=== PATIENT | female | born 1990 | race Two or more races ===

== ENCOUNTER 2020-12-18 08:51 | Inpatient (IN) | payer OTHER ==
[2020-12-18] MEDS ORDERED: BISACODYL 10 MG SUPP.RECT RC PRN (09:22)
[2020-12-18] MEDS ORDERED: BENZOCAINE 28 GM HEMORRHOIDAL OINTMENT TP PRN (09:22)
[2020-12-18] MEDS ORDERED: WITCH HAZEL 50% (TUCKS) 40 PAD/JAR PAD TP PRN (09:22)
[2020-12-18] MEDS ORDERED: BENZOCAINE 20% 57 GM BOTTLE TP PRN (09:22)
[2020-12-18] MEDS ORDERED: METHYLERGONOVINE MALEATE 0.2 MG/1 ML AMP IM PRN (09:22)
[2020-12-18] MEDS ORDERED: OXYTOCIN 20 UNITS in 0.9% NS 20 UNIT/1,000 ML INFUS.BAG IV SCH (09:30)
[2020-12-18] MEDS: IBUPROFEN 600 MG TABLET (FP) PO PRN ×2 (09:45→17:15)
[2020-12-18 10:10] LABS: BASO % 0.3 % (0-2.0); EOS % 0.3 % (0-4.5); HEMATOCRIT 32.4 % (32.4-45.2); HEMOGLOBIN 11.1 GM/dL (10.7-15.3); LYMPH % 12.6 % (8-40); MCH 29.1 pg (25.7-33.7); MCHC 34.5 g/dl (32.0-36.0); MEAN CELL VOLUME 84.4 fl (80-96); MEAN PLT VOLUME 9.8 fl (7.5-11.1); MONO % 5.3 % (3.8-10.2); NEUT % 81.5 % (42.8-82.8); PLATELET COUNT 168 K/MM3 (134-434); RBC 3.84 M/mm3 (3.60-5.2); RDW 14.6 % (11.6-15.6); WHITE BLOOD COUNT 13.2 K/mm3 (4.0-10.0)
[2020-12-18 10:15] LABS: INR 0.97 (0.83-1.09); PROTHROMBIN TIME (PATIENT) 11.9 SEC (9.7-13.0)
[2020-12-18 10:18] LABS: ACTIVATED PTT 24.7 SECONDS (25.2-36.5)
[2020-12-18 10:31] LABS: METHADONE, UR NEGATIVE ng/ml (CUTOFF=300); OPIATES, URI NEGATIVE ng/ml (CUTOFF=300); PHENCYCLIDINE,URINE NEGATIVE ng/ml (CUTOFF=25)
[2020-12-18 10:32] VITALS: BMI 29.2
[2020-12-18 10:32] LABS: URINE AMPHETAMINES NEGATIVE ng/ml (CUTOFF=500)
[2020-12-18 10:34] LABS: URINE BARBITURATES NEGATIVE ng/ml (CUTOFF=200)
[2020-12-18 10:35] LABS: URINE BENZODIAZEPINES NEGATIVE ng/ml (CUTOFF=200)
[2020-12-18 10:37] LABS: CALCIUM 8.8 mg/dL (8.5-10.1)
[2020-12-18 10:38] LABS: BLOOD UREA NITROGEN 8.1 mg/dL (7-18)
[2020-12-18 10:38] LABS: COCAINE, UR NEGATIVE ng/ml (CUTOFF=300)
[2020-12-18 10:41] LABS: CREATININE 0.5 mg/dL (0.55-1.3)
[2020-12-18] MEDS: ACETAMINOPHEN 325 MG TABLET (FP) PO PRN (17:15)
[2020-12-18 18:02] LABS: SYPHILIS W/ RPR CONF NON-REACTIVE (NONREACTIVE)
[2020-12-18 18:31] LABS: HIV INTERPRETATION NEGATIVE (NEGATIVE)
[2020-12-18] MEDS: PRENATAL VITAMINS W/ FOLIC ACID TABLET (FP) PO SCH (19:35)
[2020-12-19] MEDS: ACETAMINOPHEN 325 MG TABLET (FP) PO PRN ×2 (04:17→16:10)
[2020-12-19] MEDS: IBUPROFEN 600 MG TABLET (FP) PO PRN ×2 (04:17→16:10)
[2020-12-19 09:02] LABS: BASO % 0.5 % (0-2.0); EOS % 0.8 % (0-4.5); HEMATOCRIT 27.3 % (32.4-45.2); HEMOGLOBIN 9.3 GM/dL (10.7-15.3); LYMPH % 16.2 % (8-40); MCH 29.5 pg (25.7-33.7); MEAN CELL VOLUME 86.6 fl (80-96); MEAN PLT VOLUME 10.2 fl (7.5-11.1); MONO % 6.5 % (3.8-10.2); PLATELET COUNT 152 K/MM3 (134-434); RBC 3.16 M/mm3 (3.60-5.2); RDW 14.8 % (11.6-15.6); WHITE BLOOD COUNT 10.4 K/mm3 (4.0-10.0)
[2020-12-19] MEDS: PRENATAL VITAMINS W/ FOLIC ACID TABLET (FP) PO SCH (10:25)
[2020-12-19 21:47] LABS: BASO % 0.5 % (0-2.0); EOS % 1.8 % (0-4.5); HEMOGLOBIN 8.3 GM/dL (10.7-15.3); LYMPH % 21.7 % (8-40); MCH 29.5 pg (25.7-33.7); MCHC 34.3 g/dl (32.0-36.0); MEAN PLT VOLUME 10.1 fl (7.5-11.1); MONO % 6.8 % (3.8-10.2); NEUT % 69.2 % (42.8-82.8); PLATELET COUNT 164 K/MM3 (134-434); RDW 14.7 % (11.6-15.6); WHITE BLOOD COUNT 8.6 K/mm3 (4.0-10.0)
[2020-12-19] MEDS ORDERED: SENNOSIDES/DOCUSATE COMBO (SENNA PLUS) TABLET (UD) PO PRN (22:00)
[2020-12-20] MEDS: IBUPROFEN 600 MG TABLET (FP) PO PRN (09:30)
[2020-12-20] MEDS: ACETAMINOPHEN 325 MG TABLET (FP) PO PRN (09:31)
[2020-12-20] MEDS: PRENATAL VITAMINS W/ FOLIC ACID TABLET (FP) PO SCH (10:00)
[2020-12-20 11:59] VITALS: BP 92/57; PULSE 85; TEMP 97.7
== END 2020-12-20 16:00 | disposition home or self-care (01) | DRG 560 ==
LOC: JLDR 08:51 → J3W 12:14
PROVIDERS: ADMIT Obstetrics & Gynecology; ATTEND Obstetrics & Gynecology
PROC: 10E0XZZ Delivery of Products of Conception, External Approach (ICD-10-PCS; principal; 2020-12-18)
DX: Z39.0 Encounter for care and examination of mother immediately after delivery (principal); O69.81X0 Labor and delivery complicated by cord around neck, without compression, not applicable or unspecified; O70.0 First degree perineal laceration during delivery; Z37.0 Single live birth; Z3A.38 38 weeks gestation of pregnancy
CPT/HCPCS: 36415; 59409; 71046-TC-FY; 80048; 80307; 85025; 85610; 85730; 86762; 86780; 86850; 86900; 86901; 87340; 87389; C9803; U0003; U0005